=== PATIENT | female | born 1935 | race Caucasian/White ===

== ENCOUNTER 2017-08-28 06:45 | Inpatient (IN) | payer OTHER ==
[2017-08-14 12:09] VITALS: BMI 26.0
--- NOTE | 2017-08-14 12:56 | PAT Medication Instructions ---
Service Date Aug 14, 2017. Current Home Medication List Bethanechol Chl (Bethanechol Chloride), 1 TAB PO QAM Desipramine HCl (Desipramine HCl), 1 TAB PO QAM Escitalopram Oxalate (Lexapro), 2.5 MG PO HS Glimepiride (Amaryl), 1 MG PO qaq Insulin Glargine (Lantus Solostar), 34 SC QPM Levothyroxine Sodium (Synthroid), 75 MCG PO QAM Lisinopril (Zestril), 40 MG PO qa Magnesium Chloride-Calcium Car (Slow-Mag), 1 TAB PO QAM Metoprolol Succinate (Toprol Xl), 25 MG PO QAM Mirabegron (Myrbetriq Er), 50 MG PO QAM Multivitamin (Multivitamin), 1 TAB PO QAM [place]-3 Fatty Acids (Fish Oil), 1 TAB PO QAM Sennosides-Docusate Sodium (Stool Softener), 1 TAB PO BID Trazodone Hcl (Trazodone), 25 MG PO HS Medication Instructions For Your Scheduled Surgery - Hold the following medications 2 weeks prior to surgery: [place]-3 Fatty Acids (Fish Oil), 1 TAB PO QAM - Hold the following medications the morning of surgery: Sennosides-Docusate Sodium (Stool Softener), 1 TAB PO BID Mirabegron (Myrbetriq Er), 50 MG PO QAM Multivitamin (Multivitamin), 1 TAB PO QAM Lisinopril (Zestril), 40 MG PO qam Magnesium Chloride-Calcium Car (Slow-Mag), 1 TAB PO QAM Glimepiride (Amaryl), 1 MG PO qam Bethanechol Chl (Bethanechol Chloride), 1 TAB PO QAM - Take the following medications the morning of surgery with a sip of water: Metoprolol Succinate (Toprol Xl), 25 MG PO QAM Levothyroxine Sodium (Synthroid), 75 MCG PO QAM Desipramine HCl (Desipramine HCl), 1 TAB PO QAM - Take the following medications as scheduled the night before surgery: Trazodone Hcl (Trazodone), 25 MG PO HS Sennosides-Docusate Sodium (Stool Softener), 1 TAB PO BID Insulin Glargine (Lantus Solostar), 34 SC QPM Escitalopram Oxalate (Lexapro), 2.5 MG PO HS If you have any questions please call us at [phone] or [phone] or [phone]
--- NOTE | 2017-08-14 13:38 | DIAGNOSTIC IMAGING REPORT ---
TWO VIEW CHEST CLINICAL HISTORY: Preoperative examination. FINDINGS: PA and lateral chest radiographs are obtained. No prior studies are available for comparison at the time of dictation. The heart is mildly enlarged and there is atherosclerotic calcification of the thoracic ureter. The pulmonary vasculature is noncongested. Nonspecific interstitial thickening is noted. There is no airspace consolidation or pleural effusion. There is no pneumothorax. The skeletal structures are osteopenic. The bony thorax appears intact. IMPRESSION: Mild cardiac enlargement with no active disease in the chest. Electronically signed by: Ga Rooney M.D. 08/14/2017 1:37 PM Dictated Date/Time: 08/14/2017 1:36 PM
[2017-08-14 13:56] LABS: BASO % 0.6 %; BASO ABS # 0.03 K/uL (0-0.2); COMPLETE YES; HEMATOCRIT 43.1 % (37-47); IG% 0.2 %; LYMPH % 31.7 %; LYMPH ABS # 1.54 K/uL (1.2-3.4); MEAN CELL VOLUME 90.4 fL (80-100); MEAN CORPUSCULAR HEMOGLOBIN 31.2 pg (25-34); MEAN CORPUSCULAR HGB CONC 34.6 g/dl (32-36); MONO % 6.8 %; NEUT % 59.7 %; PLATELET COUNT 121 K/uL (130-400); RED BLOOD COUNT 4.77 M/uL (4.2-5.4); WHITE BLOOD COUNT 4.86 K/uL (4.8-10.8)
[2017-08-14 14:08] LABS: PROTHROMBIN TIME (PATIENT) 10.9 SECONDS (9.0-12.0)
[2017-08-14 14:10] LABS: ESTIMATED AVERAGE GLUCOSE 126 mg/dl; HA1C FLAG Normal (Normal)
[2017-08-14 14:13] LABS: BUN/CREATININE RATIO 21.5 (10-20); CALCIUM 9.5 mg/dl (8.5-10.1); CREATININE 0.84 mg/dl (0.60-1.20); POTASSIUM 4.2 mmol/L (3.5-5.1)
[2017-08-14 14:19] LABS: URINE APPEARANCE CLEAR (CLEAR); URINE BILIRUBIN NEG (NEG); URINE COLOR YELLOW; URINE NITRITE NEG (NEG); URINE SPECIFIC GRAVITY 1.013 (1.000-1.030); UROBILINOGEN NEG (NEG); ZZUR CULT IF INDIC CLEAN CATCH NO
[2017-08-14 14:26] LABS: MANUAL MICROSCOPIC REQUIRED? NO; REVIEW REQ? NO
--- NOTE | 2017-08-27 15:39 | HISTORY & PHYSICAL EXAMINATION ---
DATE OF ADMISSION: 08/28/2017 CHIEF COMPLAINT: Left knee pain. HISTORY OF PRESENT ILLNESS: The patient is an 81-year-old female with known osteoarthritis about her left knee. She has failed conservative care including viscosupplementation injections as well as corticosteroid injections. She continues to have ongoing pain and disability with activities of daily living and now desires to proceed with left total knee arthroplasty. PAST MEDICAL HISTORY: Type 1 diabetes, hypertension, hyperlipidemia, and hypothyroidism. PAST SURGICAL HISTORY: Cholecystectomy, hysterectomy, and hip surgery. MEDICATIONS: Multivitamin daily, fish oil daily, trazodone 50 mg daily, Lantus insulin as needed, lisinopril 40 mg daily, Synthroid 75 mcg daily, desipramine 25 mg daily, oxybutynin chloride 5 mg daily, metoprolol succinate ER 50 mg daily, and Amaryl 1 mg daily. ALLERGIES: No known drug allergies. SOCIAL HISTORY AND REVIEW OF SYSTEMS: Noncontributory. PHYSICAL EXAMINATION: GENERAL: Well-nourished and well-developed elderly female who appears her stated age. HEENT: Normocephalic and atraumatic. Extraocular movements intact. Oropharynx is pink and moist. NECK: Supple without adenopathy. LUNGS: Clear to auscultation bilaterally. HEART: Regular rate and rhythm. ABDOMEN: Soft, nontender, and nondistended. EXTREMITIES: The upper extremities are within normal limits. The left knee has a varus alignment. She complains primarily of medial compartment pain. Her range of motion is approximately 0-125 degrees. She has mild crepitus with range of motion. X-RAYS: X-rays were reviewed. She has a varus aligned knee. She has [id number] arthritis of the medial compartment with complete loss of the joint space. There are medial osteophytes. There is moderate degenerative change about the patellofemoral joint as well. ASSESSMENT: Left knee degenerative joint disease. PLAN: Risks versus benefits were discussed. Consent was obtained. The patient's primary care physician is Dr. Hernández. We will proceed with left total knee arthroplasty upon preoperative workup and medical clearance.
[~2017-08-28] VITALS: Ht 162.6 cm; Wt 69.6 kg
[2017-08-28] VITALS (9 sets, daily range): BP systolic 110–194; BP diastolic 55–81; PULSE 62–78; TEMP 36.4–36.9; O2SAT 93–98; Ht 162.6 cm; Wt 69.6 kg
[2017-08-28] MEDS: TRANEXAMIC ACID INJ 1,000 MG in SODIUM CHLORIDE 0.9% 100ML 100 ML IV SCH ×2 (06:30→08:46)
[~2017-08-28 06:45] MED LIST: ACETAMINOPHEN 500 MG TAB PO SCH; BTH25 PO; BUPIVACAINE 0.25% 30 ML VIAL ONE; BUPIVACAINE 0.5 % 5 MG/1 ML PF 10ML VIAL ONE; CEFAZOLIN 1000MG/55 ML D5W 55 ML IV SCH; CeleBREX 200 MG CAP PO SCH; DEXAMETHASONE 4 MG TAB PO SCH; DEXAMETHASONE SOD INJ 4 MG/ML VIAL ONE; DSP25 PO; ESCI1TAB6 PO; EpINEphrine INJ 1MG/ML AMP 1 MG/ML AMP ONE; FAMOTIDINE 20 MG TAB PO SCH; GABAPENTIN 300 MG CAP PO SCH; GLIM1TAB PO; INSDGIPEN SC; LACTATED RINGER'S 1000ML 500 ML IV ONE; LACTATED RINGER'S 1000ML IV SCH; LEVO75TA PO; LISI40TA PO; MAGNTAB17 PO; METO25TA3 PO; METOCLOPRAMIDE HCL 10 MG TAB PO SCH; MIRA1TAB3 PO; MULT-506 PO; OMEG500C2 PO; ROPIVACAINE 5MG/ML 30 ML 150 MG, BUPIVACAINE/EPINEPHR 0.5% MPF 30 ML, KETOROLAC TROMETH... INFIL SCH; SENNTAB23 PO; TRAZ50TA35 PO
[2017-08-28] MEDS: LACTATED RINGER'S 1000ML 1,000 ML IV SCH ×2 (07:38→09:08)
[2017-08-28] MEDS ORDERED: MIDAZOLAM HCL 1 MG/ML 2ML VIAL ONE (08:04)
[2017-08-28] MEDS ORDERED: PROPOFOL IV EMULSION 10 MG/ML 20 ML VIAL IV ONE (08:06)
[2017-08-28] MEDS ORDERED: LIDOCAINE HCL 2% 2 ML VIAL (20MG/ML) ONE (08:06)
[2017-08-28] MEDS ORDERED: FENTANYL CITRATE INJ 50 MCG/1 ML 2 ML VIAL ONE (08:06)
[2017-08-28] MEDS ORDERED: ONDANSETRON INJ 2 MG/ML 2 ML VIAL ONE (08:06)
--- NOTE | 2017-08-28 08:12 | History & Physical Bridge Note ---
H&P Re-Evaluation Bridge Note: I have examined the patient, reviewed the History & Physical and in the interval since the performance of the History & Physical I have noted the following changes of clinical significance: No changes noted
[2017-08-28] MEDS ORDERED: BACITRACIN 50000 UNIT VIAL ONE (08:16)
[2017-08-28] MEDS ORDERED: POVIDONE-IODINE OP SOLN 30 ML BTL ONE (08:16)
[2017-08-28] MEDS ORDERED: ORTHO JOINT ANESTHETIC ONE (08:16)
[2017-08-28] MEDS ORDERED: FENTANYL CITRATE INJ 50 MCG/1 ML 2 ML VIAL IV PRN (09:45)
[2017-08-28] MEDS ORDERED: EpHEDrine SULFATE INJ 50 MG/ML AMP IV PRN (09:45)
[2017-08-28] MEDS ORDERED: ONDANSETRON INJ 2 MG/ML 2 ML VIAL IV PRN ×2 (09:45→11:15)
[2017-08-28] MEDS ORDERED: ATROPINE SULFATE 0.1 MG/ML 5ML SYR IV PRN (09:45)
--- NOTE | 2017-08-28 10:18 | [facility] Post Operative Brief Note ---
Immediate Operative Summary Operative Date Aug 28, 2017. Pre-Operative Diagnosis Left Knee Degenerative Joint Disease Post-Operative Diagnosis Left Knee Degenerative Joint Disease Procedure(s) Performed Left Total Knee Arthroplasty Surgeon Dr. Alexi Nguyen Onion Topper Surgeon(s) Raul Self PA-C Estimated Blood Loss 10ml Findings severe OA Specimens Permanent: A. Left Knee Bone and Tissue Disposition Recovery Room / PACU
--- NOTE | 2017-08-28 10:39 | OPERATIVE REPORT ---
DATE OF OPERATION: 08/28/2017 PREOPERATIVE DIAGNOSIS: Osteoarthritis left knee. POSTOPERATIVE DIAGNOSIS: Osteoarthritis left knee. PROCEDURE: Left total knee arthroplasty. SURGEON: Dr. Nguyen. OCC THERAPY ASST: Raul Self PA-C. ANESTHESIA: Spinal. COMPLICATIONS: None. DESCRIPTION OF PROCEDURE: Following induction of spinal anesthesia, the patient's left leg was prepped and draped in the usual sterile manner. Limb was exsanguinated with an Esmarch bandage and tourniquet was inflated to 350 mmHg. A longitudinal incision was made anteriorly. Subcutaneous tissue was sharply dissected. Electrocautery was used for hemostasis. Prepatellar bursa was incised and median parapatellar incision was performed. Patella was everted and the knee was flexed. Fat pad was removed to aid in visualization and the anterior and posterior cruciate ligaments were removed. The medial face of the tibia was cleared of soft tissue first with a Bovie and a Godinez elevator. This tissue was retracted posteriorly using a blunt Hohmann. A Reeves retractor was used to expose the synovium above on the anterior aspect of the femur and this was removed down to bone. The PSI guide was placed on the distal femur and two pins were placed anteriorly and kept in position and two additional pins were placed distally and removed. The distal femoral cutting block was placed in position and the distal femoral cut was used in the +0 setting. Next, the cutting block was removed and the femoral size 3 block was placed in the distal end of the femur. Care was taken to ensure appropriate external rotation and feeler gauge was used to ensure no notching would occur. The femoral block was centered on the distal femur and in the medial and lateral direction and was fixed using two bone screws. The gold pins were then removed. The oscillating saw was used to create the bone cuts and the distal femoral cutting block was removed and the reciprocating saw was used to further trim the femoral cuts as well as a deep in the area for the trochlear groove. Next, posterior condyle remnants were removed. Following this, a meniscal clamp and knife were utilized to remove the anterior portion of both medial and lateral meniscus. The proximal tibia PSI guide was placed into position and the proximal tibial cutting guide was screwed into position. The extra medullary alignment guide was utilized to ensure appropriate alignment. The proximal tibia was cut and the proximal tibial cutting block was removed and this bone fragment was removed. The appropriate guide was used to perform the notch cut on the distal femur and a lamina statistical methods professor and a cochlear knife were utilized to finish both medial and lateral meniscectomies to remove any remnants of the posterior or anterior cruciate ligaments. Following this, the distal femoral component was impacted into position and blunt Kortney was used to sublux the tibia anteriorly. The proximal tibia was sized and a size 2 tibial tray was chosen as the size to be used. This was put into position and appropriate external rotation and a double check with extramedullary alignment guide was performed. The canal for the tibial stem was prepared first with a 17 mm drill and then the punch and a mallet and the trial tibial poly was placed. A 9 was chosen the size to be used. It was brought to extension and the patella was prepared with the patellar reamer. A 33 component was chosen the size to be used. The trial component was placed and knee was taken through a full range of motion and there was found to be no lateral subluxation of the tibia. No lateral release was required. The trials were all removed. The final components were obtained and assembled. Cement was mixed. The knee was thoroughly irrigated and the ortho mix was injected about the knee joint. The final components were cemented into position. After thoroughly suctioning and drying the bone ends, all excess cement was removed. The knee was held in extension while the cement hardened. The wound was irrigated and closed over a Hemovac drain. #1 Vicryl was used to close the extensor mechanism. Subcutaneous tissues closed using 0 Dexon. Skin was closed with raul. Sterile dressing of Adaptic, 4 x 4's, sterile Webril, and Renny was applied. The patient tolerated the procedure well and went to recovery room in stable condition. Due to the complex nature of the procedure, the entire surgery was performed with the operational assistance of Raul Self PA-C. The client services assistant, under direct supervision, was involved in the actual performance of all aspects of the surgical procedure including hemostasis, tissue retraction and incision, instrument management, patient positioning, and wound closure. I attest to the content of the Intraoperative Record and any orders documented therein. Any exception s are noted below.
[2017-08-28] MEDS ORDERED: MAGNESIUM HYDROXIDE SUSP 30 ML UDC PO PRN (11:15)
[2017-08-28] MEDS ORDERED: ALUMINUM/MAGNESIUM/SIMETH (MAALOX MAX) 30 ML UDC PO PRN (11:15)
[2017-08-28] MEDS ORDERED: MoRPHine SULFATE 2 MG/ML CARP IV PRN (11:15)
[2017-08-28] MEDS ORDERED: TRAMADOL HCL 50 MG TAB PO PRN (11:15)
[2017-08-28] MEDS ORDERED: BISACODYL 10 MG SUPP PR PRN (11:15)
--- NOTE | 2017-08-28 11:34 | Anesthesiology Progress Note ---
Anesthesia Post Op Note Date & Time Aug 28, 2017 at 11:33 Vital Signs Pain Intensity: 0 Vital Signs Past 12 Hours Date Time Temp Pulse Resp B/P (MAP) Pulse Ox O2 Delivery O2 Flow Rate FiO2 08/28/17 11:25 73 16 138/56 98 Nasal Cannula 2 08/28/17 11:15 36.8 70 16 138/54 98 Nasal Cannula 2 08/28/17 11:05 75 16 127/77 97 Nasal Cannula 3 08/28/17 10:55 80 16 131/54 98 Nasal Cannula 3 08/28/17 10:47 37.4 80 16 129/53 97 Nasal Cannula 3 08/28/17 07:22 36.4 77 18 194/71 97 Room Air Notes Mental Status: alert / awake / arousable, participated in evaluation Pt Amnestic to Procedure: Yes Nausea / Vomiting: adequately controlled Pain: adequately controlled Airway Patency, RR, SpO2: stable & adequate BP & HR: stable & adequate Hydration State: stable & adequate Neuraxial Anesthesia: was administered, sensory block is resolving Anesthetic Complications: no major complications apparent
--- NOTE | 2017-08-28 11:47 | DIAGNOSTIC IMAGING REPORT ---
L KNEE 1 OR 2 VIEWS ROUTINE CLINICAL HISTORY: Postoperative evaluation. COMPARISON: None FINDINGS: Alignment of the total left knee arthroplasty is anatomic. There is no fracture or unexpected radiopaque foreign body. Drains are in place. IMPRESSION: Expected findings following total left knee arthroplasty. Electronically signed by: Hood Rhodes M.D. 08/28/2017 11:46 AM Dictated Date/Time: 08/28/2017 11:45 AM
[2017-08-28] MEDS: SODIUM CHLORIDE 0.9% 1000ML 1,000 ML IV SCH ×2 (12:27→20:46)
[2017-08-28] MEDS: FERROUS GLUCONATE 324 MG TAB PO SCH ×2 (12:43→18:16)
[2017-08-28] MEDS: ACETAMINOPHEN 500 MG TAB PO SCH ×2 (13:33→21:35)
[2017-08-28] MEDS ORDERED: INSULIN ASPART 100 UNITS/ML 3 ML PEN SC SCH (17:15)
[2017-08-28] MEDS ORDERED: INSULIN ASPART 100 UNITS/ML 3 ML PEN SC ONE (17:28)
--- NOTE | 2017-08-28 17:37 | Medical Consult ---
Consultation Date of Consultation: Aug 28, 2017 . Attending Physician: Alexi Nguyen M.D. . Reason for Consultation: medical management . History of Present Illness 81-year-old female from [place] followed by Dr. Hernández. History of hypertension, diabetes, and other problems noted below. Left total knee arthroplasty performed earlier today by Dr. Nguyen. Doing well postoperatively. No chest pain. No cough or dyspnea. No nausea or vomiting. Postop pain well-controlled. . Past Medical/Surgical History Chronic and Resolved Medical Problems: (1) Diabetes mellitus, type 2 Status: Chronic (2) Dyslipidemia Status: Chronic (3) Hypertension Status: Chronic (4) Hypothyroidism Status: Chronic (5) Osteoarthritis Status: Chronic Surgical Problems: (1) Status post cataract extraction Status: Chronic (2) Status post cholecystectomy Status: Chronic (3) Status post hip surgery Status: Chronic (4) Status post hysterectomy Status: Chronic . Family History Diabetes mellitus Social History Smoking Status: Never Smoker Alcohol Use: none Allergies Coded Allergies: No Known Allergies (Unverified , 08/28/17) Home Medications Reported Home Medications Medications Dose Route/Sig Max Daily Dose Days Date Category Stool Softener (Sennosides-Docusate Sodium) 1 Tab Tab 1 Tab PO BID 08/14/17 Reported Myrbetriq Er (Mirabegron) 50 Mg Tab 50 Mg PO QAM 08/14/17 Reported Slow-Mag (Magnesium Chloride-Calcium Car) 1 Tab Tab 1 Tab PO QAM 08/14/17 Reported Amaryl (Glimepiride) 1 Mg Tab 1 Mg PO QAM 08/14/17 Reported Multivitamin (Multivitamins) Tab 1 Tab PO QAM 08/14/17 Reported Bethanechol Chloride (Bethanechol Chl) 25 Mg Tab 1 Tab PO QAM 08/14/17 Reported Trazodone (Trazodone HCl) 50 Mg Tab 25 Mg PO HS 08/14/17 Reported Synthroid (Levothyroxine Sodium) 75 Mcg Tab 75 Mcg PO QAM 08/14/17 Reported Zestril (Lisinopril) 40 Mg Tab 40 Mg PO QAM 08/14/17 Reported Lantus Solostar (Insulin Glargine) 100 Unit/Ml Inj 34 SC QPM 08/14/17 Reported Fish Oil (Altha-3 Fatty Acids) 500 Mg Cap 1 Tab PO QAM 08/14/17 Reported Desipramine HCl 25 Mg Tab 1 Tab PO QAM 08/14/17 Reported Lexapro (Escitalopram Oxalate) 5 Mg Tab 2.5 Mg PO HS 08/14/17 Reported Toprol Xl (Metoprolol Succinate) 25 Mg Tabcr 25 Mg PO QAM 08/14/17 Reported Current Inpatient Medications Current Inpatient Medications Medications (Trade) Dose Ordered Sig/Imelda Route Start Time Stop Time Status Last Admin Dose Admin Cefazolin Sodium 55 ml @ 100 mls/hr PREOP IV 08/28/17 06:00 08/28/17 18:00 08/28/17 09:09 100 MLS/HR Acetaminophen (Tylenol Tab) 1,000 mg PREOP PO 08/28/17 06:00 08/28/17 18:00 08/28/17 07:35 1,000 MG Celecoxib (CeleBREX CAP) 200 mg PREOP PO 08/28/17 06:00 08/28/17 18:00 08/28/17 07:35 200 MG Dexamethasone (Decadron Tab) 8 mg PREOP PO 08/28/17 06:00 08/28/17 18:00 08/28/17 07:34 8 MG Famotidine (Pepcid Tab) 20 mg PREOP PO 08/28/17 06:00 08/28/17 18:00 08/28/17 07:35 20 MG Gabapentin (Neurontin Cap) 300 mg PREOP PO 08/28/17 06:00 08/28/17 18:00 08/28/17 07:34 300 MG Metoclopramide HCl (Reglan Tab) 10 mg PREOP PO 08/28/17 06:00 08/28/17 18:00 08/28/17 07:35 10 MG Tranexamic Acid 1000 mg/Sodium Chloride 110 ml @ 660 mls/hr TODAY@06,0630 IV 08/28/17 06:00 08/28/17 18:00 08/28/17 08:46 660 MLS/HR Bethanechol Chloride (Urecholine Tab) 25 mg QAM PO 08/29/17 09:00 09/28/17 08:59 Desipramine HCl (Norpramin Tab) 25 mg QAM PO 08/29/17 09:00 09/28/17 08:59 Escitalopram Oxalate (Lexapro Tab) 2.5 mg HS PO 08/28/17 21:00 09/27/17 20:59 Glimepiride (Amaryl Tab) 1 mg QDB PO 08/29/17 08:30 09/28/17 08:29 Levothyroxine Sodium (Synthroid Tab) 75 mcg DAILYBB PO 08/29/17 06:00 09/28/17 05:59 Lisinopril (Zestril Tab) 40 mg QAM PO 08/29/17 09:00 09/28/17 08:59 Metoprolol Succinate (Toprol Xl Tab) 25 mg QAM PO 08/29/17 09:00 09/28/17 08:59 Mirabegron (Myrbetriq Er) 50 mg QAM PO 08/29/17 09:00 09/28/17 08:59 Trazodone HCl (Desyrel Tab) 25 mg HS PO 08/28/17 21:00 09/27/17 20:59 UNV Morphine Sulfate (MoRPHine SULFATE INJ) 2 mg Q4HWA PRN IV 08/28/17 11:15 09/11/17 11:14 Insulin Aspart (novoLOG ASPART) SLIDING SCALE G... ACHS SC 08/28/17 17:15 09/27/17 17:14 08/28/17 12:58 4 UNITS Sodium Chloride 1,000 ml @ 100 mls/hr Q10H IV 08/28/17 11:04 08/29/17 11:03 08/28/17 12:27 100 MLS/HR Cefazolin Sodium 1000 mg/Dextrose 55 ml @ 100 mls/hr Q8H IV 08/28/17 18:00 08/29/17 02:32 Oxycodone HCl (Roxicodone Immediate Rel Tab) 1 TABLET FOR PAIN RATING... Q4H PRN PO 08/28/17 11:15 09/11/17 11:14 Acetaminophen (Tylenol Tab) 1,000 mg Q8 PO 08/28/17 14:00 09/27/17 13:59 08/28/17 13:33 1,000 MG Magnesium Hydroxide (Milk Of Magnesia Susp) 30 ml Q6H PRN PO 08/28/17 11:15 09/27/17 11:14 Bisacodyl (Dulcolax Supp) 10 mg DAILY PRN NH 08/28/17 11:15 09/27/17 11:14 Senna (Senokot Tab) 17.2 mg HS PO 08/28/17 21:00 09/27/17 20:59 Docusate Sodium (coLACE CAP) 100 mg BID PO 08/28/17 21:00 09/27/17 20:59 Al Hydrox/Mg Hydrox/Simethicone (Maalox Max Susp) 15 ml Q4H PRN PO 08/28/17 11:15 09/27/17 11:14 Multivitamins (Multivitamin Tab) 1 tab QAM PO 08/29/17 09:00 09/28/17 08:59 Ondansetron HCl (Zofran Inj) 4 mg Q6H PRN IV 08/28/17 11:15 09/27/17 11:14 Ferrous Gluconate (Ferrous Gluconate Tab) 324 mg TIDM PO 08/28/17 12:30 09/27/17 12:29 08/28/17 12:43 324 MG Pantoprazole Sodium (Protonix Tab) 40 mg QAM PO 08/29/17 09:00 09/28/17 08:59 Tramadol HCl (Ultram Tab) 1 tablet for pain rating... Q4H PRN PO 08/28/17 11:15 09/27/17 11:14 Aspirin (Ecotrin Tab) 81 mg BID PO 08/28/17 21:00 09/27/17 20:59 Insulin Aspart (novoLOG ASPART) SLIDING SCALE G... ACHS SC 08/28/17 21:00 09/27/17 20:59 UNV Insulin Aspart (novoLOG ASPART) SLIDING SCALE G... 1728 ONCE SC 08/28/17 17:28 08/28/17 17:29 UNV Insulin Glargine (Lantus Solostar Pen) BSG LANTUS SQ <... HS SC 08/28/17 21:00 09/27/17 20:59 UNV Review of Systems Constitutional: No fever, No weight loss Respiratory: No cough, No shortness of breath Cardiovascular: No chest pain Abdomen: + constipation, No nausea, No vomiting, No diarrhea, No GI bleeding Musculoskeletal: + joint pain Genitourinary - Female: No dysuria, No hematuria Hematologic / Lymphatic: No abnormal bleeding/bruising Physical Exam Date Time Temp Pulse Resp B/P (MAP) Pulse Ox O2 Delivery O2 Flow Rate FiO2 08/28/17 15:30 98 Room Air 08/28/17 15:17 36.8 70 14 166/72 (103) 97 Room Air 08/28/17 14:40 69 16 110/55 (73) 97 08/28/17 13:35 62 16 122/69 (86) 97 08/28/17 12:40 76 16 164/81 (108) 97 08/28/17 12:15 Nasal Cannula 2.0 08/28/17 12:10 78 16 121/69 (86) 96 08/28/17 11:40 Nasal Cannula 2.0 08/28/17 11:40 36.9 77 16 115/62 (79) 94 Nasal Cannula 2.0 08/28/17 11:25 73 16 138/56 98 Nasal Cannula 2 08/28/17 11:15 36.8 70 16 138/54 98 Nasal Cannula 2 08/28/17 11:05 75 16 127/77 97 Nasal Cannula 3 08/28/17 10:55 80 16 131/54 98 Nasal Cannula 3 08/28/17 10:47 37.4 80 16 129/53 97 Nasal Cannula 3 08/28/17 07:22 36.4 77 18 194/71 97 Room Air General Appearance: WD/WN, no apparent distress Head: normocephalic, atraumatic Eyes: normal inspection, PERRL, EOMI, sclerae normal ENT: pharynx normal, + pertinent finding (edentulous, wearing upper dentures) Neck: supple, no adenopathy, thyroid normal, no JVD, trachea midline Respiratory/Chest: lungs clear, no respiratory distress, no accessory muscle use Cardiovascular: regular rate, rhythm, no edema, no gallop, no JVD, no murmur Abdomen/GI: normal bowel sounds, non tender, soft, no organomegaly, no pulsatile mass Extremities/Musculoskelatal: no calf tenderness, + pertinent finding (TEDS and SCDs applied) Neurologic/Psych: audio specialist II-XII nml as tested (PERRL, EOMI), no motor/sensory deficits (motor strength grossly intact), alert, normal mood/affect, oriented x 3 Skin: normal color, warm/dry, no rash Lymphatic: no adenopathy (cervical) Laboratory Results PREOP LABS: Item Value Date Time Hemoglobin 14.9 g/dL 08/14/17 1302 Hematocrit 43.1 % 08/14/17 1302 White Blood Count 4.86 K/uL 08/14/17 1302 Platelet Count 121 K/uL L 08/14/17 1302 Prothrombin Time 10.9 SECONDS 08/14/17 1302 Prothromb Time International Ratio 1.0 08/14/17 1302 Partial Thromboplastin Ratio 1.0 08/14/17 1302 Sodium Level 141 mmol/L 08/14/17 1302 Potassium Level 4.2 mmol/L 08/14/17 1302 Chloride Level 105 mmol/L 08/14/17 1302 Carbon Dioxide Level 30 mmol/L 08/14/17 1302 Blood Urea Nitrogen 18 mg/dl 08/14/17 1302 Creatinine 0.84 mg/dl 08/14/17 1302 Random Glucose 110 mg/dl H 08/14/17 1302 Hemoglobin A1c 6.0 % H 08/14/17 1302 Chest x-ray performed 08/14/17 revealed mild cardiomegaly, no active disease. EKG performed 08/14/17 reviewed and demonstrated normal sinus rhythm at 70/minute , no acute ST or T-wave abnormalities. Last 24 Hours Test 08/28/17 07:23 08/28/17 10:51 08/28/17 11:45 Bedside Glucose 165 mg/dl 192 mg/dl 247 mg/dl . Assessment & Plan S/P TKA POD # 0. Doing well postoperatively. HYPERTENSION Hemodynamically stable postoperatively. Continue metoprolol and lisinopril with hold parameters. Following titrate therapy. DIABETES MELLITUS TYPE 2 Usually well-controlled; preoperative hemoglobin A1c 6.0. Fingerstick blood sugar this afternoon 308. Postoperative hyperglycemia multifactorial- due to steroids, physiologic stress , inactivity, etc. Hold oral agents during hospital stay. Manage blood sugars with Lantus and NovoLog per protocol. HYPOTHYROIDISM Continue levothyroxine. DEPRESSION Continue Lexapro. VTE PROPHYLAXIS Per Orthopedics protocol. Thank you for this consultation. We will follow the patient with you during their hospital stay. Dr. Izquierdo will be covering for our team starting Wednesday 08/29. You can reach a member of the [facility] Medicine Team 16/06 via pager @ [phone]. You can reach me via cell @ [phone]. .
[2017-08-28] MEDS: CEFAZOLIN IV 1,000 MG in DEXTROSE 5% 50ML 50 ML IV SCH (18:16)
[2017-08-28] MEDS: ESCITALOPRAM OXALATE 10 MG TAB PO SCH (20:46)
[2017-08-28] MEDS: DOCUSATE SODIUM 100 MG CAP PO SCH (20:46)
[2017-08-28] MEDS: ASPIRIN 81 MG ECTAB PO SCH (20:46)
[2017-08-28] MEDS: SENNA 8.6 MG TAB PO SCH (20:47)
[2017-08-28] MEDS: TRAZODONE HCL 50 MG TAB PO SCH (20:49)
[2017-08-28] MEDS: INSULIN GLARGINE SOLOSTAR 100 UNITS/ML 3 ML PEN SC SCH (20:58)
[2017-08-28] MEDS: INSULIN ASPART 100 UNITS/ML 3 ML PEN SC SCH (20:58)
[2017-08-29] MEDS ORDERED: INSULIN ASPART 100 UNITS/ML 3 ML PEN SC ONE (01:00)
[2017-08-29] MEDS: CEFAZOLIN IV 1,000 MG in DEXTROSE 5% 50ML 50 ML IV SCH (01:08)
[2017-08-29 03:36] VITALS: BP 132/69; PULSE 66; TEMP 36.8; O2SAT 93
[2017-08-29] MEDS: ACETAMINOPHEN 500 MG TAB PO SCH ×3 (05:50→21:51)
[2017-08-29] MEDS: LEVOTHYROXINE 75 MCG TAB PO SCH (05:50)
[2017-08-29] MEDS: SODIUM CHLORIDE 0.9% 1000ML 1,000 ML IV SCH (05:51)
[2017-08-29 07:10] VITALS: BP 131/63; PULSE 70; TEMP 36.8; O2SAT 93
[2017-08-29 07:18] LABS: MEAN CELL VOLUME 88.2 fL (80-100); MEAN CORPUSCULAR HEMOGLOBIN 30.6 pg (25-34); MEAN CORPUSCULAR HGB CONC 34.7 g/dl (32-36); MEAN PLATELET VOLUME 10.7 fL (7.4-10.4); PLATELET COUNT 103 K/uL (130-400); RED BLOOD COUNT 3.63 M/uL (4.2-5.4); WHITE BLOOD COUNT 10.19 K/uL (4.8-10.8)
[2017-08-29 07:50] LABS: BUN/CREATININE RATIO 26.8 (10-20); CALCIUM 8.1 mg/dl (8.5-10.1); CREATININE 1.1 mg/dl (0.60-1.20); POTASSIUM 4.3 mmol/L (3.5-5.1)
--- NOTE | 2017-08-29 07:58 | Orthopedic Progress Note ---
Orthopedic Progress Note Date of Service Aug 29, 2017. Subjective Post OP Day: 1 Reports: feeling well Objective N/V intact (Mild footdrop), dressing C/D/I (Hemovac in place), toes mobile Date Time Temp Pulse Resp B/P (MAP) Pulse Ox O2 Delivery O2 Flow Rate FiO2 08/29/17 07:10 36.8 70 16 131/63 (85) 93 Room Air 08/29/17 03:36 36.8 66 16 132/69 (90) 93 Room Air 08/29/17 00:05 Room Air 08/28/17 22:53 36.8 70 17 113/60 (77) 93 Room Air 08/28/17 15:30 98 Room Air 08/28/17 15:17 36.8 70 14 166/72 (103) 97 Room Air 08/28/17 14:40 69 16 110/55 (73) 97 08/28/17 13:35 62 16 122/69 (86) 97 08/28/17 12:40 76 16 164/81 (108) 97 08/28/17 12:15 Nasal Cannula 2.0 08/28/17 12:10 78 16 121/69 (86) 96 08/28/17 11:40 Nasal Cannula 2.0 08/28/17 11:40 36.9 77 16 115/62 (79) 94 Nasal Cannula 2.0 08/28/17 11:25 73 16 138/56 98 Nasal Cannula 2 08/28/17 11:15 36.8 70 16 138/54 98 Nasal Cannula 2 08/28/17 11:05 75 16 127/77 97 Nasal Cannula 3 08/28/17 10:55 80 16 131/54 98 Nasal Cannula 3 08/28/17 10:47 37.4 80 16 129/53 97 Nasal Cannula 3 Laboratory Results 24 Hours: Test 08/29/17 06:57 Hematocrit 32.0 % Hemoglobin 11.1 g/dL Assessment & Plan Assessment: 81 yo female stable POD #1 s/p left TKA Plan: 1. Med management 2. DVT prophylaxis- ASA, SCDs 3. PT/OT 4. D/C planning- home w/ HH
--- NOTE | 2017-08-29 08:00 | Discharge Instructions ---
Discharge Instructions Date of Service Aug 29, 2017. Admission Reason for Admission: Left Knee Osteoarthritis Discharge Discharge Diagnosis / Problem: Left knee arthritis Discharge Goals Goal(s): Decrease discomfort, Improve function Activity Recommendations Activity Limitations: as noted below Weightbearing Status: Left weightbearing (as tolerated) . Instructions / Follow-Up Instructions / Follow-Up ACTIVITY RECOMMENDATIONS: SELF CARE INSTRUCTIONS AFTER TOTAL KNEE REPLACEMENT A. You may need to continue a physical therapy program after discharge from the hospital. There are several options available to you. Your doctor will assist you in selecting the best one for you. 1. An out-patient facility 2 to 3 times a week for therapy or home therapy. 2. Continue working on all exercises taught to you in the hospital. Your goals should be to increase bending of your knee to 90 degrees and beyond and to fully straighten your knee. B. You may progress at your own pace from walking with a walker or crutches to a cane; then to no assistive devices. C. Make walking a part of your daily routine. Be up as much as comfortable with rest periods throughout the day. Rest with leg elevation is very important. Use the ice wrap frequently for the first 3-4 weeks. D. There are no restrictions on activities. You may ride in a car, shop, participate in sidehand and all social activities. E. Wear the long elastic stockings (LORENA hose) 20 hours a day for 2 weeks after surgery. They can be removed several times a day for laundering and for a bath. F. You may shower, no tub baths until cleared by your doctor. SPECIAL CARE INSTRUCTIONS: VERY IMPORTANT TO READ AND REVIEW A. There are a few signs you need to watch for after you are home. Call [facility] if you notice any of the followin. Increased severe knee pain. Some pain is expected especially when you exercise. 2. Increased swelling in your leg or knee; pain or swelling of the calf muscle in either lower leg. 3. Any fluid drainage from the incision. 4. Shortness of breath or chest pain. B. Please call [facility] at if you have any concerns or questions about your operation or recovery. The doctor or his nurse will return your call promptly. C. You must take antibiotics before dental work, bladder, bowel or other surgery. Your doctor will provide you with a permanent care to carry describing this precaution. IMPORTANT: * REMEMBER TO TAKE ASPIRIN, 81 MG, TWICE DAILY FOR 4 WEEKS UNLESS OTHERWISE DIRECTED. THIS IS YOUR BLOOD THINNER. * HIGH RISK PATIENTS MAY BE PRESCRIBED A STRONGER BLOOD THINNER. THIS WILL BE PROVIDED AT DISCHARGE. * CALL IF INCREASED PAIN, REDNESS, DRAINAGE OR FEVER GREATER THAT 101. * WEAR LORENA HOSE 20 HOURS PER DAY FOR 2 WEEKS. Silverlon- This is a large adhesive bandage that contains silver ions. This helps your incision heal by fighting off bacteria and protecting it from the outside environment. You are permitted to shower with this dressing. This will remain on your incision for 7 days and then should be removed. Some visible blood or drainage through the dressing window is normal. If there is significant drainage or leaking noted before the 7 days notify your doctor's office immediately. Once removed, keep incision clean and dry. If there is any drainage or redness noted, please call your surgeon. FOLLOW UP VISIT: If appointment is not already scheduled: Please call [facility] to make a follow-up appointment for 2 weeks after your surgery at . Current Hospital Diet Patient's current hospital diet: Diabetes Type 2 Diet Discharge Diet Recommended Diet: Diabetes Type 2 Diet Procedures Procedures Performed: Left Total Knee Arthroplasty Pending Studies Studies pending at discharge: no Laboratory Results Hemoglobin A1c Test 08/14/17 13:02 Range/Units Estimated Average Glucose 126 mg/dl Hemoglobin A1c 6.0 H 4.5-5.6 % Medical Emergencies . Who to Call and When: Medical Emergencies: If at any time you feel your situation is an emergency, please call 911 immediately. . Non-Emergent Contact Non-Emergency issues call your: Surgeon Call Non-Emergent contact if: temperature is above 101.5, your pain is not controlled, wound has increased drainage, wound has increased redness . "Provider Documentation" section prepared by Toni Ryder PA-C. . VTE Core Measure Inpt VTE Proph given/why not?: Other Anticoagulation (ASA 81mg bid), T.E.D. Stockings, SCD's [place] Drug Monitoring Program Search Results: patient reviewed within database, no issues identified
[2017-08-29] MEDS ORDERED: GLIMEPIRIDE 2 MG TAB PO SCH (08:30)
[2017-08-29] MEDS ORDERED: INFLUENZA ADMINISTRATION CHARGE ONE (09:15)
[2017-08-29] MEDS ORDERED: INFLUENZA VACCINE HIGH DOSE 65+ 0.5 ML SYR IM. ONE (09:15)
[2017-08-29] MEDS: PANTOprazole SOD 40 MG TAB PO SCH (09:28)
[2017-08-29] MEDS: MULTIVITAMIN TAB PO SCH (09:29)
[2017-08-29] MEDS: ASPIRIN 81 MG ECTAB PO SCH ×2 (09:29→21:52)
[2017-08-29] MEDS: LISINOPRIL 40 MG TAB PO SCH (09:30)
[2017-08-29] MEDS: FERROUS GLUCONATE 324 MG TAB PO SCH ×3 (09:30→18:28)
[2017-08-29] MEDS: DOCUSATE SODIUM 100 MG CAP PO SCH ×2 (09:31→21:49)
[2017-08-29] MEDS: METOPROLOL SUCC 25MG EXT REL TAB PO SCH (09:31)
[2017-08-29] MEDS: MIRABEGRON ER 25 MG TAB PO SCH (09:32)
[2017-08-29] MEDS: DESIPRAMINE HCL 25 MG TAB PO SCH (09:32)
[2017-08-29] MEDS: BETHANECHOL CHL 25 MG TAB PO SCH (09:33)
[2017-08-29] MEDS: INSULIN ASPART 100 UNITS/ML 3 ML PEN SC SCH ×4 (09:38→21:57)
--- NOTE | 2017-08-29 10:19 | Anesthesiology Progress Note ---
Anesthesia Post Op Note Date & Time Aug 29, 2017 at 10:19 Vital Signs Vital Signs Past 12 Hours Date Time Temp Pulse Resp B/P (MAP) Pulse Ox O2 Delivery O2 Flow Rate FiO2 08/29/17 07:30 Room Air 08/29/17 07:10 36.8 70 16 131/63 (85) 93 Room Air 08/29/17 03:36 36.8 66 16 132/69 (90) 93 Room Air 08/29/17 00:05 Room Air 08/28/17 22:53 36.8 70 17 113/60 (77) 93 Room Air Notes Mental Status: alert / awake / arousable, participated in evaluation Pt Amnestic to Procedure: Yes Nausea / Vomiting: adequately controlled Pain: adequately controlled Airway Patency, RR, SpO2: stable & adequate BP & HR: stable & adequate Hydration State: stable & adequate Neuraxial Anesthesia: was administered, sensory block resolved Anesthetic Complications: no major complications apparent
[2017-08-29 12:00] VITALS: BP 182/69; PULSE 67; TEMP 36.7; O2SAT 97
[2017-08-29 15:22] VITALS: BP 136/56
[2017-08-29 15:42] VITALS: BP 137/69; PULSE 68; TEMP 36.9; O2SAT 96
[2017-08-29] MEDS: OXYCODONE HCL IR 5 MG TAB (IMMEDIATE RELEASE) PO PRN (19:07)
[2017-08-29] MEDS: SENNA 8.6 MG TAB PO SCH (21:50)
[2017-08-29] MEDS: ESCITALOPRAM OXALATE 10 MG TAB PO SCH (21:50)
[2017-08-29] MEDS: TRAZODONE HCL 50 MG TAB PO SCH (21:53)
[2017-08-29] MEDS: INSULIN GLARGINE SOLOSTAR 100 UNITS/ML 3 ML PEN SC SCH (21:58)
[2017-08-29 23:00] VITALS: BP 129/64; PULSE 70; TEMP 37.2; O2SAT 91
[2017-08-30] MEDS: OXYCODONE HCL IR 5 MG TAB (IMMEDIATE RELEASE) PO PRN (01:09)
[2017-08-30] MEDS: ACETAMINOPHEN 500 MG TAB PO SCH ×2 (05:40→13:18)
[2017-08-30] MEDS: LEVOTHYROXINE 75 MCG TAB PO SCH (05:40)
[2017-08-30 08:00] VITALS: O2SAT 92
[2017-08-30 08:10] VITALS: BP 187/70; PULSE 81; TEMP 36.9; O2SAT 93
[2017-08-30] MEDS: DESIPRAMINE HCL 25 MG TAB PO SCH (08:13)
[2017-08-30] MEDS: MULTIVITAMIN TAB PO SCH (08:13)
[2017-08-30] MEDS: PANTOprazole SOD 40 MG TAB PO SCH (08:13)
[2017-08-30] MEDS: METOPROLOL SUCC 25MG EXT REL TAB PO SCH (08:13)
[2017-08-30] MEDS: DOCUSATE SODIUM 100 MG CAP PO SCH (08:14)
[2017-08-30] MEDS: BETHANECHOL CHL 25 MG TAB PO SCH (08:14)
[2017-08-30] MEDS: MIRABEGRON ER 25 MG TAB PO SCH (08:14)
[2017-08-30] MEDS: FERROUS GLUCONATE 324 MG TAB PO SCH ×2 (08:14→12:30)
[2017-08-30] MEDS: LISINOPRIL 40 MG TAB PO SCH (08:15)
[2017-08-30] MEDS: ASPIRIN 81 MG ECTAB PO SCH (08:16)
--- NOTE | 2017-08-30 08:35 | Orthopedic Progress Note ---
Orthopedic Progress Note Date of Service Aug 30, 2017. Subjective Post OP Day: 2 Reports: feeling well (Pt states she's a little nausea this AM) Objective calves soft nontender, N/V intact, dressing C/D/I, toes mobile Date Time Temp Pulse Resp B/P (MAP) Pulse Ox O2 Delivery O2 Flow Rate FiO2 08/30/17 08:10 36.9 81 18 187/70 (109) 93 Room Air 08/30/17 00:10 Room Air 08/29/17 23:00 37.2 70 16 129/64 (85) 91 Room Air 08/29/17 16:00 Room Air 08/29/17 15:42 36.9 68 16 137/69 (91) 96 Room Air 08/29/17 15:22 136/56 (82) 08/29/17 12:00 36.7 67 16 182/69 (106) 97 Room Air Assessment & Plan Assessment: 81 yo female stable POD #2 s/p left TKA Plan: 1. Med management 2. DVT prophylaxis- ASA, SCDs 3. PT/OT 4. D/C planning- home w/ HH
[2017-08-30] MEDS ORDERED: RXC5 PO (08:36)
[2017-08-30] MEDS ORDERED: ONDA8TAB12 PO (08:36)
[2017-08-30] MEDS ORDERED: ASPEC81 PO (08:36)
[2017-08-30] MEDS ORDERED: ACET-24 PO (08:36)
[2017-08-30] MEDS: INSULIN ASPART 100 UNITS/ML 3 ML PEN SC SCH ×2 (09:15→13:29)
[2017-08-30 13:36] VITALS: BP 187/70; PULSE 81; TEMP 36.9; O2SAT 93
--- NOTE | 2017-08-30 15:35 | Progress Note ---
Internal Med Progress Note Date of Service: Aug 30, 2017. Provider Documentation: SUBJECTIVE: The patient was seen and examined OOB on a chair Denies any symptoms OBJECTIVE: Vital Signs-as noted below Exam: General-No distress at rest Eyes-normal ENT-normal Neck-supple Lungs-clear to auscultate bilaterality Heart-Regular,no murmur Abdomen-Benign,no masses,bowel sound present Extremities-Trace edema bilaterally Neuro-AAOx3 Lab data as noted below. ASSESSMENT & PLAN: S/P TKA POD # 2. Doing well postoperatively. HYPERTENSION Hemodynamically stable postoperatively. Continue metoprolol and lisinopril with hold parameters. Following titrate therapy. BP remains controlled Labs are unremarkable DIABETES MELLITUS TYPE 2 Usually well-controlled; preoperative hemoglobin A1c 6.0. Fingerstick blood sugar this afternoon 308. Manage blood sugars with Lantus and NovoLog per protocol Blood sugar remains stable HYPOTHYROIDISM Continue levothyroxine. DEPRESSION Continue Lexapro. VTE PROPHYLAXIS Per Orthopedics protocol. Medically stable Vital Signs: Date Time Temp Pulse Resp B/P (MAP) Pulse Ox O2 Delivery O2 Flow Rate FiO2 08/30/17 13:36 36.9 81 18 93 Room Air 08/30/17 08:10 36.9 81 18 187/70 (109) 93 Room Air 08/30/17 08:00 92 Room Air 08/30/17 00:10 Room Air 08/29/17 23:00 37.2 70 16 129/64 (85) 91 Room Air 08/29/17 16:00 Room Air 08/29/17 15:42 36.9 68 16 137/69 (91) 96 Room Air Lab Results: Results Past 24 Hours Test 08/29/17 17:05 08/29/17 20:31 08/30/17 11:57 Range/Units Bedside Glucose 202 226 211 70-90 mg/dl
--- NOTE | 2017-09-01 15:00 | DISCHARGE SUMMARY ---
DISCHARGE DIAGNOSIS: Degenerative joint disease left knee. SECONDARY DIAGNOSES: Type 1 diabetes mellitus, hypertension, hyperlipidemia, hyperthyroidism. CONSULTS: Dr. Baltazar Dotson. COMPLICATIONS: None. PROCEDURES: Left total knee arthroplasty performed by Dr. Nguyen on 08/28/2017. BRIEF HISTORY: As dictated in the history and physical. HOSPITAL SUMMARY: The patient was admitted on the above-noted date and had the above-noted surgery performed which she tolerated well. On the first postoperative day, the patient was feeling well. A mild foot drop was noted on the operative side. Dressings were clean, dry and intact. Toes were mobile. Vital signs were stable and patient was afebrile. Hemoglobin was 11.1. By the 2nd postoperative day, the patient was feeling well, but had had a little nausea that morning which was resolving. Calves were soft, nontender, neurovascularly intact. Dressings clean, dry and intact. Toes were mobile. Vital signs were stable and she was afebrile. She was remaining stable and was progressing with her physical therapy and it was felt she could be discharged to home with home health services. For further review, please see chart. LAB AND X-RAY DATA: As per chart. DISCHARGE INSTRUCTIONS: The patient was discharged to home in satisfactory condition on 08/30/2017. DIET: Diabetic. ACTIVITY: Weightbearing as tolerated left lower extremity. Follow TK instruction sheets and special care instructions as noted. Follow up with Dr. Nguyen in 2 weeks. The patient to call for appointment if one has not been made for you. DISCHARGE MEDICATIONS: Acetaminophen 1000 mg p.o. q.8 hours, aspirin 81 mg p.o. b.i.d. for 28 days, Zofran 8 mg p.o. q.8 hours p.r.n. nausea, oxycodone 5-10 mg p.o. q.4-6 hours p.r.n., Resume home meds as listed.
== END 2017-08-30 14:35 | disposition home health service (06) | DRG 470 ==
LOC: C.ACU 06:45 → C.MSN 08:00 → ENRESERV 11:20
PROC: 0SRD0J9 Replacement of Left Knee Joint with Synthetic Substitute, Cemented, Open Approach (ICD-10-PCS; principal; 2017-08-28 09:15)
DX: M17.12 Unilateral primary osteoarthritis, left knee (principal); E10.9 Type 1 diabetes mellitus without complications; I10 Essential (primary) hypertension; E78.5 Hyperlipidemia, unspecified; E03.9 Hypothyroidism, unspecified; Z79.4 Long term (current) use of insulin; Z79.899 Other long term (current) drug therapy